=== PATIENT | male | born 1975 | race Caucasian/White ===

== ENCOUNTER 2017-03-04 13:10 | Emergency (ER) | payer OTHER | END 2017-03-04 14:39 | disposition home or self-care (01) | LOC: FER 13:10 | DX: J02.9 Acute pharyngitis, unspecified (principal); I10 Essential (primary) hypertension; Z79.899 Other long term (current) drug therapy | CPT/HCPCS: 87450; 99283 ==

== ENCOUNTER 2020-11-21 12:29 | Emergency (ER) | payer OTHER ==
[~2020-11-21 12:29] MED LIST: CEFTIN250 MG PO; COREG12.5 MG PO; FLUOXETINE HCL20 MG PO; MEDROL 4MG DOSEP4 MG PO; NORCO 5-325 TA1 EACH PO; PERCOCET 10/321 EACH PO; PRINIVIL10 MG PO; TYLENOL #31 EACH PO; ZESTRIL2.5 MG PO
[2020-11-21 15:09] LABS: BASOPHIL 0.8 % (0-2); EOSINOPHIL 0.9 % (0-5); HCT > 60.0 % (42.0-52.0); HGB 19.9 g/dl (13.2-18.0); LYMPHOCYTE 19.9 % (15-48); MCH 27.6 pg (25.0-31.0); MCHC 32.2 g/dL (32.0-36.0); MCV 85.6 fL (78.0-100.0); MONOCYTE 9.7 % (0-12); NEUTROPHIL 68.4 % (41-80); NRBC 0; PLT 172 K/uL (150-400); RBC 7.22 M/uL (4.70-6.00); WBC 10.9 K/uL (4.0-10.5)
[2020-11-21 15:29] LABS: ALBUMIN 3.6 g/dL (3.4-5.0); BILIRUBIN - TOTAL 0.5 mg/dL (0.2-1.0); BUN/CREAT RATIO (CALC) 17.6 RATIO; CREATININE 1.08 mg/dL (0.67-1.17); GLOBULIN (CALCULATION) 3.6 g/dL; POTASSIUM 4.2 mmol/L (3.5-5.1); TOTAL PROTEIN 7.2 g/dL (6.4-8.2)
[2020-11-21 15:42] LABS: BILIRUBIN NEGATIVE (NEGATIVE); BLOOD NEGATIVE Ery/uL (NEGATIVE); CLARITY CLEAR (CLEAR); COLOR YELLOW (YELLOW); GLUCOSE (U) NORMAL (NORMAL); LEUKOCYTES NEGATIVE Leu/uL (NEGATIVE); NITRITE NEGATIVE (NEGATIVE); PROTEIN 1+ mg/dL (NEGATIVE); SPECIFIC GRAVITY 1.025 (1.001-1.030); UROBILINOGEN 0.2 mg/dL (0.2-1.0); pH 6.5 (5.0-9.0)
[2020-11-21 16:14] LABS: BACTERIA TRACE; URINARY RBC RARE
[2020-11-21] MEDS ORDERED: MEDROL 4MG DOSEP4 MG PO (17:00)
== END 2020-11-21 17:34 | disposition home or self-care (01) ==
LOC: FER 12:29
PROVIDERS: Nurse Practitioner Family
DX: M94.0 Chondrocostal junction syndrome [Tietze] (principal); I10 Essential (primary) hypertension; I25.2 Old myocardial infarction; F17.210 Nicotine dependence, cigarettes, uncomplicated
CPT/HCPCS: 36415; 71101; 71275; 80053; 81001; 84484; 85025; 85379; 93005; J2270; J2405; J7030; Q9967

== ENCOUNTER 2020-12-13 12:19 | Emergency (ER) | payer OTHER ==
[2020-12-13 12:47] LABS: BASOPHIL 0.7 % (0-2); EOSINOPHIL 0.7 % (0-5); HCT 54.6 % (42.0-52.0); HGB 17.9 g/dl (13.2-18.0); LYMPHOCYTE 20.7 % (15-48); MCH 27.5 pg (25.0-31.0); MCHC 32.8 g/dL (32.0-36.0); MPV 9.7 fL (6.0-9.5); NEUTROPHIL 67.6 % (41-80); NRBC 0; PLT 184 K/uL (150-400); RDW 17.5 % (11.5-14.0); WBC 11.4 K/uL (4.0-10.5)
[2020-12-13 13:20] LABS: ALBUMIN 3.5 g/dL (3.4-5.0); ALKALINE PHOSHATASE 80 U/L (46-116); ALT 32 U/L (16-63); AST 18 U/L (15-37); BILIRUBIN - TOTAL 1.1 mg/dL (0.2-1.0); BUN 20 mg/dL (7-18); BUN/CREAT RATIO (CALC) 20.4 RATIO; CHLORIDE 98 mmol/L (98-107); CO2 (BICARBONATE) 29 mmol/L (21-32); CREATININE 0.98 mg/dL (0.67-1.17); GLOBULIN (CALCULATION) 3.7 g/dL; GLUCOSE 97 mg/dL (74-106); MAGNESIUM 1.8 mg/dL (1.8-2.4); POTASSIUM 3.6 mmol/L (3.5-5.1); TOTAL PROTEIN 7.2 g/dL (6.4-8.2)
[2020-12-13 13:21] LABS: ACETAMINOPHEN (TYLENOL) < 2.0 ug/mL (10.0-30.0)
[2020-12-13 13:46] LABS: CORONAVIRUS 2019 SARS-COV-2 NEGATIVE (NEGATIVE); INFLUENZA A NAA NEGATIVE (NEGATIVE)
[2020-12-13 14:10] LABS: BILIRUBIN NEGATIVE (NEGATIVE); BLOOD TRACE-INTACT Ery/uL (NEGATIVE); CLARITY CLEAR (CLEAR); COLOR YELLOW (YELLOW); GLUCOSE (U) NORMAL (NORMAL); LEUKOCYTES NEGATIVE Leu/uL (NEGATIVE); NITRITE NEGATIVE (NEGATIVE); PROTEIN TRACE (LOW) mg/dL (NEGATIVE); UROBILINOGEN 0.2 mg/dL (0.2-1.0)
[2020-12-13 14:11] LABS: AMPHETAMINES NEGATIVE (NEGATIVE); BARBITURATES NEGATIVE (NEGATIVE); ECSTASY (MDMA) NEGATIVE (NEGATIVE); MARIJUANA (THC) NEGATIVE (NEGATIVE); METHADONE NEGATIVE (NEGATIVE); OPIATES NEGATIVE (NEGATIVE); OXYCODONE POSITIVE (NEGATIVE)
[2020-12-13 14:49] LABS: BACTERIA TRACE
== END 2020-12-13 16:57 | disposition home or self-care (01) ==
LOC: FER 12:19
PROVIDERS: Emergency Medicine
DX: F11.10 Opioid abuse, uncomplicated (principal); F14.10 Cocaine abuse, uncomplicated; I10 Essential (primary) hypertension; F17.210 Nicotine dependence, cigarettes, uncomplicated; Z87.19 Personal history of other diseases of the digestive system; Z20.822 Contact with and (suspected) exposure to COVID-19
CPT/HCPCS: 36415; 36600; 70450; 71045; 73600; 80053; 80305; 81001; 82803; 83735; 84145; 84484; 85025; 93005; G0480; J2310; J7030; P9612; U0002